=== PATIENT | female | born 1990 | race Caucasian/White ===

== ENCOUNTER 2019-07-30 10:51 | Emergency (ER) | payer BC, SELFPAY ==
[2019-07-30 10:56] VITALS: BP 124/77; PULSE 103; RESP 20; TEMP 36.4; O2SAT 96
--- NOTE | 2019-07-30 11:30 | DI.RAD_ITS ---
EXAM: XR PORTABLE CHEST AP CLINICAL HISTORY: cough sob. TECHNIQUE: 2D digital imaging was performed. COMPARISON: No exams were available for comparison FINDINGS: LUNGS: Clear. No pleural abnormality seen. HEART: Normal. MEDIASTINUM: Normal. OTHER FINDINGS: None. IMPRESSION: No acute pulmonary findings. DATA REPOSITORY: RADIATION DOSE DELIVERED:
--- NOTE | 2019-07-30 11:43 | ED.GENADUL_ITS ---
Discharge Plan Disposition Patient Disposition: HOME Condition: Stable Discharge Details Chief Complaint: RespSymp Clinical Impression: Cough, Nausea & vomiting Primary Care Provider: Unknown,Unknown ED Provider: Femi Barnes Home Meds and New Rx's Prescriptions: New doxycycline hyclate 100 mg capsule 100 mg PO BID 10 Days Qty: 20 RF: 0 ondansetron HCl [Zofran] 4 mg tablet 4 mg PO Q8H PRNQty: 10 RF: 0 No Action albuterol sulfate 1.25 mg/3 mL Solution For Nebulization 1.25 mg inhalation PRN PRNRF: 0 Discharge Instructions Instructions: Acute Nausea and Vomiting (ED), Acute Cough (ED) Additional Instructions: At this time your symptoms are concerning for coronavirus. Due to the increased likelihood of your symptoms being from coronavirus the CDC does recommend testing. I have set up testing for you, you should be contacted on Thursday with a time for testing in the outpatient tent. It takes approximately 72 hours for the test results to return. You will be contacted by [facility] staff when your results return. If you do not hear from them in 72 hours, please contact [facility]. Out of an abundance of precaution it is highly recommended that you self quarantine yourself for a total of 14 days or until symptom-free for greater than 24 to 48 hours. It would be prudent to wear a mask at all times, always wash her hands frequently, and follow-up closely with your primary care provider. It is recommended that you call your primary care provider prior to reassessment. If you are going to a health facility, please call/contact them before you arrive. At this time based on your current symptoms the CDC does not recommend admission, and there is no current clinical indication for your admission here at the hospital. However it is vitally important to monitor your symptoms closely, and if you notice any worsening of your symptoms, or any new symptoms such as worsening shortness of breath, difficulty breathing, persistent fever, worsening chills, chest pain, numbness, weakness, or fainting please call and then return immediately to the emergency department for reevaluation. Please call your primary care provider as soon as possible to make them aware of your current situation and for continued monitoring. As always, it was a pleasure participating in your medical care today. Please take Zofran and doxycycline as directed. Plenty of fluids to avoid dehydration. [id number] medications as directed for symptomatic control Stand Alone Forms: POSITIVE COVID-19/TO BE TESTED Medical Decision Making 28-year-old female with a history of asthma presents to the ER for 13-day history of illness. Symptoms began with sore throat and dry cough, sore throat has improved however now she has shortness of breath, nausea, vomiting, diarrhea. Did have abdominal pain earlier in the week and was seen in the ER at [place]. At that time routine laboratory values, including rapid strep, flu, mono were all negative. Patient subsequently discharged home. She currently appears well, nontoxic. Heart rate during my examination was in the 90s however in triage she did have a pulse of 103. She is currently normotensive, afebrile, and O2 sats are 96% on room air. Given her subjective shortness of breath, cough, now with nausea, vomiting, diarrhea, certainly could that the description of Covid 19. Obviously could be other viruses, pneumonia, etc. Based upon her initial evaluation, I do believe that she will be safe to be discharged home. Will obtain routine laboratory values, chest x-ray, d- dimer. Will set the patient up for Covid testing on Thursday as an outpatient through our tent. Will give IV fluid, Zofran, p.o. challenge and reassess. The patient demonstartes some concerning red flags as noted by the CDC for coronavirus including fever, cough, and/or shortness of breath. The patient looks notably clinically well, and does not demonstrate evidence of respiratory distress, significant or severe illness, or sepsis. Per CDC recommendations, coronavirus testing has been ordered and the patient will be contacted for tent testing on Thursday. Additionally, patient currently does not demonstrate symptoms indicative of admission or further observation here. Out of an abundance of precaution taking into account the current level of national concern, the patient's entire clinical picture, and CDC recommendations, the patient can be discharged home. Per CDC recommendations we will recommend a 14- day quarantine of the patient I have discussed good handwashing techniques, the importance of a mask, and we have also included CDC recommendations for home monitoring and isolation. I have extensively reviewed the treatment plan and discharge instructions with the patient. I have addressed all patient concerns at this time. The patient was made aware of what symptoms to monitor for that would warrant a return to the emergency department. I also discussed the importance of calling the patients's PCP, as well as the ED for any concern on prior to return. Discussed the plan with the patient, they demonstrate verbal understanding and agreement with our assessment and plan at this time. Initial triage evaluation revealed a heart rate of 103, otherwise PERC criteria negative. Dimer negative, CT imaging not indicated for further evaluation of possible PE. Upon reevaluation patient heart rate down to the 60s. She subjectively reports feeling much improvement. No vomiting while under my care. Is tolerating p.o. intake. We discussed her work-up including her chest x-ray. Nonspecific opacity left base. Could be atelectasis, pneumonia, or Covid findings. At this time she appears well, nontoxic, no respiratory distress, or hypoxia. Emergent CT imaging of chest would likely not change outcome of her visit even if multifocal infiltrates-pneumonia were found. Will treat with doxycycline, provide prescription for Zofran with her nausea and vomiting, and will have coronavirus testing performed on Thursday as an outpatient. Patient is comfortable with this plan and has no additional questions or concerns Imaging Data Radiologic Study: Attestation: I personally reviewed and interpreted this imaging study as follows: Imaging: X-Ray (Subtle left base opacity) Radiologist's impression: Minimal opacity in the left base is nonspecific but could represent minimal atelectasis or pneumonia. Recommend chest CT if there is a concern for Covid virus Lab Data Lab results reviewed: Yes I reviewed the patient's lab results. Lab results narrative: Laboratory Tests Range/Units 07/30/19 07/30/19 07/30/19 11:50 11:50 11:50 WBC (4.4-10.8) k/cumm 4.68 RBC (4.00-5.20) m/cumm 5.16 Hgb (12.0-15.5) g/dL 14.7 Hct (36.0-46.0) % 41.9 MCV (80-95) fL 81.2 MCH (27.0-33.0) pg 28.5 MCHC (32.0-36.0) g/dL 35.1 RDW (11.7-14.6) % 13.5 Plt Count (130-400) x1000/uL 205 MPV (8.0-11.0) fL 11.3 H D-Dimer (<500) ng/mlFEU Sodium (136-145) mmol/L 136 Potassium (3.5-5.1) mmol/L 3.9 Chloride (98-107) mmol/L 100 Carbon Dioxide (21.0-32.0) mmol/L 26.4 Anion Gap (3-11) mmol/L 9.6 BUN (7-18) mg/dL 16 Creatinine (0.55-1.02) mg/dL 0.92 Estimated GFR/1.73 m2 (mL/min/1.73m2) >= 60.00 Glucose (74-106) mg/dL 93 Calcium (8.5-10.1) mg/dL 8.5 Total Bilirubin (0.2-1.0) mg/dL 0.4 AST (15-37) U/L 20 ALT (14-59) U/L 29 Alkaline Phosphatase (46-116) U/L 69 Total Protein (6.4-8.2) g/dL 7.8 Albumin (3.4-5.0) g/dL 3.7 Urine Color (Yellow) Yellow Urine Clarity (Clear) Clear Urine pH (5-8) 6.0 Ur Specific [place] (1.005-1.025) >= 1.030 H Urine Protein (Negative) mg/dL Trace H Urine Ketones (Negative) mg/dL Negative Urine Blood (Negative) Trace-intact H Urine Nitrite (Negative) Negative Urine Bilirubin (Negative) Negative Urine Urobilinogen (Up TO 0.2) EU/dL 0.2 Ur Leukocyte Esterase (Negative) Negative Urine RBC (0-2) HPF 5-10 H Urine WBC (0-5) HPF 0-2 Ur Epithelial Cells (Negative) HPF Moderate Urine Crystals (Negative) HPF Negative Urine Bacteria (Negative) HPF Moderate Urine Casts (Negative) LPF Negative Urine Mucus (Negative) Heavy Urine Other (Negative) Few renal Ur Culture Indicated? No/sq. contamination Urine Glucose (Negative) mg/dL Negative Range/Units 07/30/19 11:50 WBC (4.4-10.8) k/cumm RBC (4.00-5.20) m/cumm Hgb (12.0-15.5) g/dL Hct (36.0-46.0) % MCV (80-95) fL MCH (27.0-33.0) pg MCHC (32.0-36.0) g/dL RDW (11.7-14.6) % Plt Count (130-400) x1000/uL MPV (8.0-11.0) fL D-Dimer (<500) ng/mlFEU 419 Sodium (136-145) mmol/L Potassium (3.5-5.1) mmol/L Chloride (98-107) mmol/L Carbon Dioxide (21.0-32.0) mmol/L Anion Gap (3-11) mmol/L BUN (7-18) mg/dL Creatinine (0.55-1.02) mg/dL Estimated GFR/1.73 m2 (mL/min/1.73m2) Glucose (74-106) mg/dL Calcium (8.5-10.1) mg/dL Total Bilirubin (0.2-1.0) mg/dL AST (15-37) U/L ALT (14-59) U/L Alkaline Phosphatase (46-116) U/L Total Protein (6.4-8.2) g/dL Albumin (3.4-5.0) g/dL Urine Color (Yellow) Urine Clarity (Clear) Urine pH (5-8) Ur Specific [place] (1.005-1.025) Urine Protein (Negative) mg/dL Urine Ketones (Negative) mg/dL Urine Blood (Negative) Urine Nitrite (Negative) Urine Bilirubin (Negative) Urine Urobilinogen (Up TO 0.2) EU/dL Ur Leukocyte Esterase (Negative) Urine RBC (0-2) HPF Urine WBC (0-5) HPF Ur Epithelial Cells (Negative) HPF Urine Crystals (Negative) HPF Urine Bacteria (Negative) HPF Urine Casts (Negative) LPF Urine Mucus (Negative) Urine Other (Negative) Ur Culture Indicated? Urine Glucose (Negative) mg/dL HPI General Mode of arrival: ambulatory . Date/Time Provider Initiated Documentation: 07/30/19 10:53 . Limitations to Documentation: no limitations . Information obtained by: patient . HPI Narrative: This is a 28-year-old female with a history of asthma presenting to the ER with 13 days of symptoms. Symptoms began with dry cough, sore throat however have now evolved into feeling short of breath, nausea, vomiting, diarrhea. Did have abdominal cramping last Thursday but that has resolved. She reports that her sore throat has resolved and her cough is now mild. She has generalized weakness and myalgias. She reports not being able to hold food or liquid down for the past 3 days. She was evaluated this previous Thursday in [place], reports that blood work, mono, strep, flu all negative and subsequently discharged. Was not tested for the coronavirus at that time. Patient denies headache, neck pain, chest pain, dysuria, skin rash, pain or swelling in her calves. She denies travel anywhere outside of the local [facility] region. Has had no known sick contacts, specifically with anyone confirmed of the Covid virus. Patient reports that she is simply just not getting better, now concerned of her generalized weakness and possible dehydration. Related Data Home Medications Medication Instructions Recorded Confirmed albuterol sulfate 1.25 mg INHALATION PRN PRN 07/30/19 07/30/19 doxycycline hyclate 100 mg PO BID 10 Days #20 cap 07/30/19 ondansetron HCl [Zofran] 4 mg PO Q8H PRN #10 tab 07/30/19 Previous Rx's Medication Instructions Recorded doxycycline hyclate 100 mg PO BID 10 Days #20 cap 07/30/19 ondansetron HCl [Zofran] 4 mg PO Q8H PRN #10 tab 07/30/19 Allergies Allergy/AdvReac Type Severity Reaction Status Date / Time No Known Allergies Allergy Unverified 07/30/19 11:02 General Stated Complaint: RespSymp RAQUEL: 3 Review of Systems Constitutional Constitutional: Reports chills, Reports fatigue, Denies fever(s) and Denies headache(s) Eyes Eyes: Denies eye discharge ENT Ears, Nose, Mouth, and Throat: Denies headache(s) and Reports sore throat Cardiovascular Cardiovascular: Denies chest pain and Reports dyspnea Respiratory Respiratory: Reports cough and Reports dyspnea Gastrointestinal Gastrointestinal: Reports abdominal pain, Reports diarrhea, Reports nausea and Reports vomiting Genitourinary Genitourinary: Denies dysuria Musculoskeletal Musculoskeletal: Reports myalgias Integumentary/Breasts Skin/Breast: Denies rash Neurologic Neurologic: Denies headache(s) Endocrine Endocrine: Reports fatigue [facility] Social History Smoking/Tobacco Use Status: Former Tobacco Use Alcohol Intake: current Alcohol Intake frequency: holidays/special occasions only Drug use: Never Substance use type: does not use Do you feel safe at home: Yes Do you feel safe in your relationship?: Yes Exam Const General: cooperative, healthy appearing, comfortable and no acute distress Orientation: alert and awake [facility] Head: normal to inspection, normocephalic and atraumatic Ears: external ears normal, TM's normal bilaterally and EAC's normal Mouth: moist mucous membranes abnormal (Slightly dry) Throat: posterior oropharynx normal Eyes Conjunctivae: conjunctivae normal Neck Neck: normal visual inspection, full ROM, no lymphadenopathy, no meningeal signs, trachea midline and supple Resp Effort & Inspection: normal respiratory effort and able to speak in complete sentences Auscultation: clear to auscultation bilaterally Cardio Rate: regular rate Rhythm: regular rhythm GI Inspection: normal to inspection Palpation: soft, not firm, no guarding, not rigid and nontender Auscultation: normal bowel sounds Back/Spine/Pelvis Back: No back tenderness Skin General skin exam: no rashes or lesions noted Neuro General: patient alert, patient awake, patient oriented x3, moves all extremities and no focal motor deficits Cognition: normal cognition Speech: speech normal Motor: muscle tone normal throughout Sensory Exam: no sensory deficits noted Extrem General: normal to inspection, full ROM, capillary refill normal, no calf tenderness, no edema and no pedal edema Psych Appearance: grossly normal Mental Status: mental status grossly normal Course Vital Signs Vital signs: Vital Signs Temperature 36.4 C L 07/30/19 10:56 Pulse 103 H 07/30/19 10:56 Respiratory Rate 20 07/30/19 10:56 Blood Pressure 124/77 07/30/19 10:56 Pulse Oximetry 96 07/30/19 10:56 Temperature 36.4 C L 07/30/19 10:56 Pulse 103 H 07/30/19 10:56 Respiratory Rate 20 07/30/19 10:56 Respiratory Effort 07/30/19 11:04 Respiratory Depth Normal 07/30/19 11:04 Blood Pressure 124/77 07/30/19 10:56 Pulse Oximetry 96 07/30/19 10:56 Oxygen Delivery Method Room Air 07/30/19 10:56 Oxygen Flow Rate 0 07/30/19 10:56
[2019-07-30] MEDS: Ondansetron 4 MG/2 ML VIAL IVP (12:00)
[2019-07-30] MEDS: Ketorolac 30 MG/ML VIAL IVP (12:00)
[2019-07-30] MEDS: Normal Saline 1,000 ML 1000 ML IV ×2 (12:00→13:36)
[2019-07-30 12:04] LABS: Bilirubin Negative (Negative); Blood Trace-intact (Negative); Clarity Clear (Clear); Glucose Negative (Negative); Ketones Negative (Negative); Leukocyte Esterase Negative (Negative); Nitrite Negative (Negative); Specific Gravity >= 1.030 (1.005-1.025); Urobilinogen 0.2 EU/dL (Up TO 0.2)
[2019-07-30 12:15] LABS: Bacteria Moderate HPF (Negative); Epithelial Cells Moderate HPF (Negative); Other Cells Few Renal (Negative); WBC 0-2 HPF (0-5)
[2019-07-30 12:16] LABS: C & S Indicated? No/Sq. Contamination; Casts Negative LPF (Negative); Crystals Negative HPF (Negative); Mucus Heavy (Negative)
[2019-07-30 12:17] LABS: HCT 41.9 % (36.0-46.0); HGB 14.7 g/dL (12.0-15.5); Mean Corp. HGB Concentration 35.1 g/dL (32.0-36.0); Mean Corpuscular Hemoglobin 28.5 pg (27.0-33.0); Mean Corpuscular Volume 81.2 fL (80-95); Mean Platelet Volume 11.3 fL (8.0-11.0); Platelet Count 205 x1000/uL (130-400); RBC 5.16 m/cumm (4.00-5.20); RBC Distribution Width 13.5 % (11.7-14.6); White Blood Cell Count 4.68 k/cumm (4.4-10.8)
--- NOTE | 2019-07-30 12:22 | DI.VRAD_ITS ---
PROCEDURE INFORMATION: Exam: XR Chest, 1 View Exam date and time: 07/30/2019 12:17 PM Age: 28 years old Clinical indication: Cough and shortness of breath; Patient HX: Concern for covid-19. TECHNIQUE: Imaging protocol: XR of the chest Views: 1 view. COMPARISON: No relevant prior studies available. FINDINGS: Lungs: Minimal opacity in the left base is nonspecific but could represent minimal atelectasis or pneumonia. Pleural space: Unremarkable. No pleural effusion. No pneumothorax. Heart/Mediastinum: Unremarkable. No cardiomegaly. Bones/joints: Unremarkable. IMPRESSION: Minimal opacity in the left base is nonspecific but could represent minimal atelectasis or pneumonia. Recommend chest CT if there is a concern for covid virus Dictated and Authenticated by: Angelito Timmons MD. Ordering:ARMANDO Kahn MD
[2019-07-30 12:28] LABS: ALT 29 U/L (14-59); AST 20 U/L (15-37); Albumin 3.7 g/dL (3.4-5.0); Alkaline Phosphatase 69 U/L (46-116); Anion Gap 9.6 mmol/L (3-11); BUN 16 mg/dL (7-18); Bilirubin, Total 0.4 mg/dL (0.2-1.0); CO2 26.4 mmol/L (21.0-32.0); CREATININE 0.92 mg/dL (0.55-1.02); Calcium 8.5 mg/dL (8.5-10.1); Chloride 100 mmol/L (98-107); Glucose 93 mg/dL (74-106); Potassium 3.9 mmol/L (3.5-5.1); Sodium 136 mmol/L (136-145); Total Protein 7.8 g/dL (6.4-8.2)
[2019-07-30 13:34] VITALS: O2SAT 98
[2019-07-30 13:40] VITALS: O2SAT 100
[2019-07-30 13:53] LABS: D-Dimer 419 ng/mlFEU (<500)
[2019-07-30 15:26] VITALS: PULSE 69; O2SAT 100
== END 2019-07-30 14:23 | disposition home or self-care (01) ==
PROVIDERS: Emergency Provider Physician Assistant
DX: R06.02 Shortness of breath (principal); R05 Cough; R11.2 Nausea with vomiting, unspecified
CPT/HCPCS: 36415; 80053; 81025; 85027; 96361; 96374; 96375; 99284; U0003; 71045; 81003; 81015; 85379; J1885; J2405

== ENCOUNTER 2019-08-01 08:34 | Outpatient (CLI) | payer BC, SELFPAY ==
[2019-08-02 19:42] LABS: SARS-CoV-2 RNA Undetected (Undetected); SARS-CoV-2 Specimen Source Nasopharynx
== END 2019-08-01 08:54 ==
PROVIDERS: Visit Provider Physician Assistant
DX: Z20.828 Contact with and (suspected) exposure to other viral communicable diseases (principal)
CPT/HCPCS: U0003

== ENCOUNTER 2021-01-10 02:56 | Outpatient (CLI) | payer BC, SELFPAY ==
[2021-01-10 12:09] LABS: HCG Quant, Pregnancy < 1 mIU/mL (1-3)
== END 2021-01-10 02:57 | disposition home or self-care (01) ==
LOC: LBO 02:56
PROVIDERS: Visit Provider Obstetrics & Gynecology
DX: N91.2 Amenorrhea, unspecified (principal)
CPT/HCPCS: 36415; 84702

== ENCOUNTER 2021-05-14 02:48 | Outpatient (CLI) | payer BC, SELFPAY ==
[2021-05-14] MEDS: Albuterol HFA 18 GM 200 PUFF INH IH (16:06)
[2021-05-14] MEDS: Inhaler, Assist Device 1 EACH MC (16:06)
--- NOTE | 2021-05-15 11:57 | W.PFT ---
Date of service: 05/14/21 Time of Service: 14:59 Pulmonary Function Test Result Requesting Provider Duchene Indications: Dyspnea, asthma Interpretation Spirometry: There is no airflow limitation. There is no significant bronchodilator response. Lung Volumes: Lung volumes are normal. Diffusion Capacity: Diffusion is normal Airway Pressure: Airways resistance is normal. Impression Normal PFT's Clinical Correlation therefore is recommended.
== END 2021-05-14 02:49 | disposition home or self-care (01) ==
LOC: RT 02:49
PROVIDERS: PCP Registered Nurse Maternal Newborn; Visit Provider Student in an Organized Health Care Education/Training Program
DX: R06.09 Other forms of dyspnea (principal); J45.909 Unspecified asthma, uncomplicated
CPT/HCPCS: 94060; 94726; 94729

== ENCOUNTER 2021-05-15 01:15 | Outpatient (CLI) | payer BC, SELFPAY ==
--- NOTE | 2021-05-15 | DI.MRI_ITS ---
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 COMPARISON: There are no prior plain films available time this MRI interpretation. FINDINGS: EFFUSION: Small-moderate size joint effusion. There is no Sorenson cyst in the popliteal fossa. MARROW:There is no evidence of fracture, bone contusion, nor osteochondral defects.. There are no si gnificant osseous lesions. PATELLOFEMORAL COMPARTMENT: The quadriceps tendon is intact. The patellar ligament is intact. There is no significant thinning of the retropatellar cartilage. No evidence of fissure nor signific ant chondral defect. No osteochondral defect at this level.There is no intraosseous signal to sugges t recent patellar dislocation. There are no patellar retinacular tears. CRUCIATE LIGAMENTS: The anterior cruciate ligament is intact.The posterior cruciate ligament is intac t. MEDIAL COMPARTMENT/MEDIAL MENISCUS: There is intrasubstance signal abnormality in the posterior horn of the medial meniscus consistent with an element of myxoid degeneration. This does not violate an a rticular surface and us does not constitute a true tear. The meniscal root is intact. There is mild extrusion of the anterior horn no obvious tear. There is no meniscocapsular separation.. There are no chondral defects, osteochondral defects, subarticular marrow edema, nor osteophytes evid ent. MEDIAL COLLATERAL LIGAMENT: Intact LATERAL COMPARTMENT/LATERAL MENISCUS: There is no evidence of lateral meniscal tear.There is some deg enerative change in the lateral compartment with mild Cartwright cartilage signal abnormality over the weight-bearing surface but no osteochondral defect. There is also marginal osteophyte off outer aspe ct of the lateral condyle. No bone edema at this level nor in the subjacent tibial plateau. There a re no osteochondral defects. ILIOTIBIAL BAND: Intact LATERAL COLLATERAL LIGAMENT COMPLEX: The fibular collateral ligament is intact. The biceps femoris t endon is intact.Popliteus muscle and tendon are intact. IMPRESSION: 1. There is signal abnormality throughout the substance of the posterior horn of the medial meniscus but this does not violate an articular surface and is therefore doubtful for true tear of this struct ure. Mild extrusion of the anterior horn noted. No meniscocapsular separation. No degenerative men iscal cysts 2. There are mild degenerative signal changes in the Cartwright cartilage over the lateral femoral cond yle and there is a small marginal osteophytes off the outer aspect of the lateral condyle. No bone e yanira nor osteochondral defects evident. 3. The cruciate and collateral ligaments are intact. 4. There is a moderate-sized joint effusion. There is no obvious loose intra-articular body. DATA REPOSITORY:
== END 2021-05-15 01:35 ==
LOC: DI 01:15
PROVIDERS: PCP Registered Nurse Maternal Newborn; Visit Provider Physician Assistant
DX: M95.8 Other specified acquired deformities of musculoskeletal system (principal); M25.462 Effusion, left knee
CPT/HCPCS: 73721

== ENCOUNTER 2024-05-13 08:12 | Emergency (ER) | payer BC, SELFPAY ==
[2024-05-13 08:16] VITALS: BP 141/63; PULSE 95; RESP 16; TEMP 37.4; O2SAT 99
--- NOTE | 2024-05-13 08:17 | ED.GENADUL_ITS ---
Discharge Plan Disposition Patient Disposition: Home Condition: Stable Discharge Details Clinical Impression: Acute bronchitis Primary Care Provider: Monique Moss ED Provider: Femi Barnes Home Meds and New Rx's Prescriptions: New benzonatate 200 mg capsule 200 mg PO TID PRNQty: 20 0RF ondansetron 4 mg tablet,disintegrating 4 mg PO Q8H PRNQty: 14 0RF Continued albuterol sulfate 90 mcg/actuation HFA aerosol inhaler 2 puff inhalation Q6H PRN albuterol sulfate 1.25 mg/3 mL Solution For Nebulization 1.25 mg inhalation PRN PRN Discharge Instructions Instructions: Acute bronchitis Additional Instructions: Flu, RSV, COVID, rapid strep all negative. Your evaluation and vital signs are very reassuring. No fever here in the ER. Your oxygen level is 99% on room air. Unfortunately you likely have a viral syndrome, bronchitis. Supportive measures such as [id number] medications for symptomatic control, rest, plenty of fluids, etc. Please watch for new or worsening symptoms and return immediately to the ER. If symptoms were to worsen or evolve, chest x-ray would be reasonable. We did discuss that while you are overall illness symptoms will likely resolve over the next 5 days, the dry cough may linger for several weeks. Please contact your primary care provider later today to discuss your ER visit and need for outpatient reevaluation. HPI General Mode of arrival: ambulatory . Date/Time Provider Initiated Documentation: 05/13/24 08:17 . Limitations to Documentation: no limitations . Information obtained by: patient . History of Present Illness 33 year old F presents to the emergency department with the chief complaint of URI, described as moderate, with intensity rated at 5. Quality is described as aching (Ears, throat), and is localized to the head (Ears), mouth (Throat) and chest (With coughing). Patient reports no radiation. Patient started experiencing this day(s) (3.5) and it has been constant. No relieving factors improve symptom(s), No exacerbating factors reported . Patient notes cough, fever/chills (Subjective fever), headaches and nausea/vomiting (Nausea, vomiting with coughing). Patient did receive the following treatments prior to arrival, NSAID Related Data Home Medications ?Medication ?Instructions ?Recorded ?Confirmed albuterol sulfate 1.25 mg/3 mL 1.25 mg inhalation PRN PRN 07/30/19 05/13/24 solution for nebulization albuterol sulfate 90 mcg/actuation 2 puff inhalation Q6H PRN 03/08/21 05/13/24 aerosol inhaler benzonatate 200 mg capsule 200 mg PO TID PRN #20 caps 05/13/24 ondansetron 4 mg disintegrating 4 mg PO Q8H PRN #14 tabs 05/13/24 tablet Previous Rx's ?Medication ?Instructions ?Recorded benzonatate 200 mg capsule 200 mg PO TID PRN #20 caps 05/13/24 ondansetron 4 mg disintegrating 4 mg PO Q8H PRN #14 tabs 05/13/24 tablet Allergies Allergy/AdvReac Type Severity Reaction Status Date / Time Robitussin 12 hour Allergy Severe Anaphylaxis Uncoded 05/13/24 08:26 General RAQUEL: 3 Review of Systems Constitutional Constitutional: Denies chills and Reports fever(s) (Subjective) Eyes Eyes: Denies eye discharge ENT Ears, Nose, Mouth, and Throat: Denies ear discharge, Reports otalgia, Reports nasal congestion, Reports nasal discharge, Reports sore throat and Denies throat swelling Cardiovascular Cardiovascular: Reports chest pain (With coughing) Respiratory Respiratory: Reports cough and Reports wheezing Gastrointestinal Gastrointestinal: Denies abdominal pain, Denies diarrhea, Reports nausea and Reports vomiting Genitourinary Genitourinary: Denies dysuria Musculoskeletal Musculoskeletal: Reports myalgias Integumentary/Breasts Skin/Breast: Denies rash Allergic/Immunologic Allergic/Immunologic: Denies throat swelling and Reports wheezing Exam Const General: cooperative, healthy appearing, comfortable and no acute distress Orientation: alert and awake [facility] Head: normal to inspection, normocephalic and atraumatic Ears: external ears normal, TM's normal bilaterally and EAC's normal General nose exam: external nose normal and mucous membranes and turbinates abnormal boggy Face and sinus: normal facial exam Mouth: oral mucosae normal, lip normal, tongue normal and moist mucous membranes Teeth and gingiva: dentition normal Throat: uvula midline, posterior oropharynx abnormal erythema (Minimal) and postnasal drainage Eyes General: appearance normal, both eyes and all related structures Alignment and Position: alignment normal Periorbital: periorbital findings normal Eyelids: eyelids normal Conjunctivae: conjunctivae normal Sclera: sclerae normal Cornea: corneas normal Pupils: PERRL EOM: EOM intact bilaterally Direct ophthalmoscopy: normal light reflex Neck Neck: normal visual inspection, full ROM, no meningeal signs, trachea midline, supple and lymphadenopathy bilateral anterior cervical Resp Effort & Inspection: normal respiratory effort, able to speak in complete sentences and cough Quality of cough: dry Auscultation: clear to auscultation bilaterally Cardio Rate: regular rate Rhythm: regular rhythm GI Palpation: soft, not firm, no guarding and nontender Back/Spine/Pelvis Back: no CVA tenderness and No back tenderness Skin General skin exam: no rashes or lesions noted Neuro General: patient alert, patient awake, moves all extremities and no focal motor deficits Sensory Exam: no sensory deficits noted Extrem General: normal to inspection, full ROM and capillary refill normal Psych Appearance: grossly normal Mental Status: mental status grossly normal Medical Decision Making 33-year-old female, non-smoker, history of asthma, presents with 3-1/2-day history of sore throat, runny nose, dry cough, body aches, chest pain that is associated with coughing, and nausea that began today. Patient states that over the past couple of days she has coughed so hard it has caused her to vomit but denies any true abdominal pain or diarrhea. Daughter has had a dry cough for the past couple of weeks. Unaware of any other potential sick exposures. Treating symptoms with [id number] medications with mild relief. Clinically she appears well, nontoxic, speaks in full senses. A dry cough is noted. No wheezing. She is afebrile, respirations of 16, O2 sat of 99% on room air. Patient already uses a albuterol inhaler with good results, will provide her a spacer. Will provide 4 mg Zofran ODT for nausea. Will obtain Fluvid and rapid strep. Given the lack of fever, lungs are clear to auscultation, O2 sats are 99%, low suspicion for acute bacterial pneumonia. No clear indication to pursue chest x-ray at this time. Zofran provided, patient tolerated p.o. liquids without difficulty. No vomiting while here in the ER. Rapid strep negative. Negative flu, RSV, COVID. Upon reevaluation patient is resting comfortably and sleeping, wakes easily to verbal stimuli. A continued dry cough is noted. No respiratory distress. No vomiting here in the ER, has tolerated p.o. intake. Discussed HPI and workup in length. Likely viral bronchitis. Again, no clear indication for chest x-ray at this time. Patient already has albuterol inhaler, did provide a spacer. No clear indication for oral steroids or antibiotics. Will provide a prescription for Tessalon Perles as well as Zofran. Discussed expected progression of her illness. If symptoms were to evolve or worsen, I do believe a chest x-ray would be reasonable. Encouraged to return to the ER for new or worsening symptoms. Patient and family comfortable with this plan. All questions were answered. Agree and understand treatment plan. Standard discharge and return precautions were provided. Patient understands, is agreeable to this plan, and has no additional questions or concerns upon discharge. This documentation was generated using [employer] system, please disregard any oddities of phrase or misspellings. Medical Records Medical records reviewed: Yes I reviewed the patient's medical records. Quality:SDOH Health Related Social Needs: No Data to Display PFSH All Active Problems (Updated 05/13/24 @ 09:43 by CATE Lopez) Acute bronchitis (Acute) Amenorrhea (Acute) Dry cough (Acute) chronic Asthma (Chronic) Medical History Bilateral knee pain Pain x10 years , right worse than left, was recommended for surgery before moving here. Social History Smoking/Tobacco Use Status: Former Tobacco Use Quit Date: 05/04/14 Smoking risk assessment performed?: Yes Alcohol Intake: current Alcohol Intake frequency: holidays/special occasions only Drug use: Never Substance use type: does not use Housing: house current occupation: Patient works in [employer] and is scared to get covid with her asthma. Do you feel safe at home: Yes Do you feel safe in your relationship?: Yes
[2024-05-13 08:21] VITALS: RESP 16
[2024-05-13] MEDS: Inhaler, Assist Device 1 EACH MC (08:48)
[2024-05-13] MEDS: Ondansetron O.D.T. 4 MG TABEF PO (08:50)
[2024-05-13 09:17] LABS: COVID-19 PCR Negative (Negative); Influenza A PCR Negative (Negative); Influenza B PCR Negative (Negative); RSV PCR Negative (Negative)
[2024-05-13 09:18] LABS: Source Nasopharynx
[2024-05-13 09:52] VITALS: BP 128/80; PULSE 99; RESP 18; O2SAT 99
== END 2024-05-13 09:53 | disposition home or self-care (01) ==
PROVIDERS: Emergency Provider Physician Assistant; PCP Registered Nurse Maternal Newborn
DX: J20.9 Acute bronchitis, unspecified (principal); Z87.891 Personal history of nicotine dependence
CPT/HCPCS: 87637; 87880; 99283; 87081

== ENCOUNTER 2024-08-30 00:10 | Outpatient (CLI) | payer BC, SELFPAY ==
--- NOTE | 2024-08-30 13:00 | DI.MRI_ITS ---
Exam(s) MR LOWER JOINT RT WO EXAM: MR LOWER JOINT RT WO CLINICAL HISTORY: Internal derangement of rt knee, M23.91; acute pop medially, ?meniscal tear. TECHNIQUE: Multiplanar multisequence MRI was performed. COMPARISON: None FINDINGS: BONES: There is no fracture or contusion pattern. JOINTS: No joint effusion is present. Articular cartilage: Patellofemoral joint: Partially obscured by artifact. Cartilage appears thinned throughout. Medial femoral tibial joint: Articular cartilage is unremarkable. Lateral femoral tibial joint: Thinning of cartilage overlying posterior aspect of the lateral femora l condyle. LIGAMENTS/TENDONS: Anterior Cruciate: Unremarkable. Posterior Cruciate: Unremarkable. Medial Collateral:Unremarkable. Lateral Collateral ligament complex: Unremarkable. Extensor mechanism: Unremarkable. Medial retinaculum: Unremarkable. Lateral retinaculum: Unremarkable. Popliteus: Unremarkable. MENISCI: The medial meniscus is unremarkable. The lateral meniscus shows abnormal thickening and high signal within the body and anterior horn. Th ere are several small adjacent meniscal cysts, the largest measuring up to 8 millimeters in size proj ecting anteriorly. MUSCLES: Unremarkable. SOFT TISSUES: Unremarkable. IMPRESSION: Tears involving the anterior horn and body of the lateral meniscus. No ligament tear. DATA REPOSITORY:
== END 2024-08-30 00:30 ==
PROVIDERS: Visit Provider Specialist
DX: M23.91 Unspecified internal derangement of right knee (principal)
CPT/HCPCS: 73721